=== PATIENT | female | born 1990 | race African-American/Black ===

== ENCOUNTER 2022-11-23 23:36 | Emergency (ER) | payer BC ==
[2022-11-23 23:55] VITALS: BP 120/76; RESP 18; TEMP 99.9; BMI 28.8
[2022-11-24] MEDS ORDERED: ONDANSETRON 4 MG/2 ML VIAL IVPUSH ONE (00:22)
[2022-11-24] MEDS ORDERED: SODIUM CHLORIDE 1,000 ML IV STA (00:22)
[2022-11-24] MEDS ORDERED: ONDANSETRON 4 MG/2 ML VIAL ONE (00:28)
[2022-11-24 01:12] VITALS: PULSE 100
== END 2022-11-24 01:16 | disposition home or self-care (01) ==
LOC: FER 23:36
PROC: 3E033GC Introduction of Other Therapeutic Substance into Peripheral Vein, Percutaneous Approach (ICD-10-PCS; principal; 2022-11-23)
PROC: 3E0337Z Introduction of Electrolytic and Water Balance Substance into Peripheral Vein, Percutaneous Approach (ICD-10-PCS; 2022-11-23)
DX: R11.2 Nausea with vomiting, unspecified (principal)
CPT/HCPCS: 99284-25